=== PATIENT | male | born 1985 | race Two or more races ===

== ENCOUNTER 2024-10-11 02:30 | Emergency (ER) | payer SELFPAY ==
[2024-10-11] MEDS: Morphine 4 MG/ML Syringe IVPUSH ONE (02:48)
[2024-10-11] MEDS: HYDROmorphone 1 MG/ML Syringe IVPUSH ONE (04:15)
[2024-10-11] MEDS: ceFAZolin 1 GM in Water For Injection, Sterile 10 ML IVPUSH ONE (04:53)
== END 2024-10-11 05:06 | disposition home or self-care (01) ==
LOC: MW.ED 02:30
DX: S09.93XA Unspecified injury of face, initial encounter (principal); F17.200 Nicotine dependence, unspecified, uncomplicated; W17.89XA Other fall from one level to another, initial encounter
CPT/HCPCS: 70450; 70486; 96374; 96375; 99283; J0690; J1171; J2270